=== PATIENT | male | born 1985 | race Caucasian/White ===

== ENCOUNTER 2017-10-04 07:42 | Day surgery (SDC) | payer OTHER ==
[2017-09-25 13:10] VITALS: BMI 24.3
[2017-10-04] MEDS ORDERED: MIDAZOLAM HCL 2 MG/2 ML SINGLE DOSE VIAL ONE (09:23)
[2017-10-04] MEDS ORDERED: ceFAZolin SODIUM 1 GM VIAL ONE (09:37)
[2017-10-04] MEDS ORDERED: ONDANSETRON 4 MG/2 ML VIAL ONE ×2 (09:40→10:49)
[2017-10-04] MEDS ORDERED: DEXAMETHASONE SOD PHOSPHATE 4 MG/1 ML VIAL ONE (09:40)
[2017-10-04] MEDS ORDERED: KETOROLAC TROMETHAMINE 30 MG/1 ML VIAL ONE (09:40)
[2017-10-04] MEDS ORDERED: PROPOFOL 20 ML ONE (10:04)
--- NOTE | 2017-10-04 10:53 | DS ---
Physical Examination Vital Signs: Vital Signs Temperature 98.8 F 10/04/17 08:07 Pulse Rate 94 H 10/04/17 08:07 Respiratory Rate 18 10/04/17 08:07 Blood Pressure 120/71 10/04/17 08:07 O2 Sat by Pulse Oximetry (%) 98 10/04/17 08:07 Discharge Summary Reason For Visit: PVNS RIGHT KNEE Condition: Good - Instructions Diet, Activity, Other Instructions: Post Operative Instructions: Knee Arthroscopy Dr Venkat Lara 1. Pain following an arthroscopy is variable. Some patients will have more pain than others. You have been provided with a prescription for medication that contains a narcotic. You are not allowed to drive while on this medication. You should NOT take Tylenol (Acetaminophen) when taking the pain medication ( it will result in an overdose). Feel free to take medications such as Ibuprofen or Naprosyn in addition to the pain medicine if you do not have any problems with the NSAID class of medications. 2. You should are allowed to remove the bandages and shower in 24 hours unless directed otherwise. You are not allowed to bathe or go swimming until the sutures are removed. Put band-aids on the sutures after your shower and do not put any creams or lotions over the incisions. 3. You are allowed to put all your weight on the leg and bend your knee. 4. Apply ice to the knee for 15 min every hour or so. You may continue this for as many days as you like. 5. Please call the office to schedule a visit to have your sutures removed. 6. If for any reason you believe you may have an infection or are concerned, please feel free to call me. I can be reached through our office number 24 hours a day. 7. Please call our office with any questions; we will review the surgical findings during your post operative visit. Disposition: HOME - Home Medications Comprehensive Discharge Medication List: Ambulatory Orders NK [No Known Home Medication] 12/23/15
--- NOTE | 2017-10-04 10:53 | OP ---
Operative Note - Note: Operative Date: 10/04/17 Pre-Operative Diagnosis: Right knee PVNS Operation: RKA, total synovectomy, including posteromedial AND posterolateral compartments with PVNS excision. Post-Operative Diagnosis: Same as Pre-op Surgeon: Venkat Lara
[2017-10-04] MEDS ORDERED: ONDANSETRON 4 MG/2 ML VIAL IVPUSH ONE (10:58)
[2017-10-04] MEDS ORDERED: ONDANSETRON 4 MG/2 ML VIAL IVPUSH PRN (11:03)
[2017-10-04] MEDS ORDERED: ACETAMINOPHEN 325 MG TABLET (FP) PO PRN (11:03)
[2017-10-04] MEDS ORDERED: oxyCODONE HCL 5 MG TABLET PO PRN (11:03)
[2017-10-04] MEDS ORDERED: oxyCODONE HCL 5 MG TABLET ONE (11:58)
[2017-10-04 13:09] VITALS: BP 130/82; PULSE 78; TEMP 98.5
--- NOTE | 2017-10-07 14:58 | PATH ---
Surgical Pathology Report Patient Name: VANNESSA CHATMAN JR [facility]. Rec. #: [id number] /Age/Gender: 1985 (Age: 31) / M Account: [id number] Location: [facility] Taken: 10/04/2017 Received: 10/04/2017 Reported: 10/07/2017 Physicians: Venkat Lara M.D. Specimen(s) Received PVNS Clinical History Right knee osteoarthritis, PVNS Final Diagnosis PVNS, EXCISION: PIGMENTED VILLONODULAR SYNOVITIS (PVNS). Electronically Signed Elda Cloud M.D. Gross Description Received in formalin, labeled "PVNS," is a 4.8 x 4.0 x 0.5 cm. aggregate of blake/yellow-brown soft tissue fragments. A sales representative printing paper portion is submitted in one cassette. /10/04/201710/04/2017
== END 2017-10-04 13:09 | disposition home or self-care (01) ==
LOC: FASU 07:42
PROVIDERS: ATTEND Orthopaedic Surgery
PROC: 0SBC4ZZ Excision of Right Knee Joint, Percutaneous Endoscopic Approach (ICD-10-PCS; 2017-10-04)
PROC: 0SBC4ZZ Excision of Right Knee Joint, Percutaneous Endoscopic Approach (ICD-10-PCS; principal; 2017-10-04 09:00)
DX: M12.261 Villonodular synovitis (pigmented), right knee (principal); M23.241 Derangement of anterior horn of lateral meniscus due to old tear or injury, right knee
CPT/HCPCS: 88305-TC; 94760